=== PATIENT | male | born 1985 | race Caucasian/White ===

== ENCOUNTER 2016-10-21 10:07 | Emergency (ER) | payer OTHER ==
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
[2016-10-21] MEDS ORDERED: ACETAMINOPHEN 325 MG TABLET (FP) PO ONE (10:11)
[2016-10-21] MEDS ORDERED: METOCLOPRAMIDE HCL 10 MG TABLET (FP) PO ONE ×2 (10:12→10:16)
[2016-10-21 10:14] VITALS: TEMP 98; BMI 25.0
[2016-10-21] MEDS ORDERED: ACETAMINOPHEN 325 MG TABLET (FP) ONE (10:15)
[2016-10-21 13:04] VITALS: BP 130/77; PULSE 66
== END 2016-10-21 13:04 | disposition home or self-care (01) ==
LOC: JER 10:07
DX: F07.81 Postconcussional syndrome (principal); M25.561 Pain in right knee; M25.571 Pain in right ankle and joints of right foot; W17.89XA Other fall from one level to another, initial encounter; X00.8XXA Other exposure to uncontrolled fire in building or structure, initial encounter; Y93.89 Activity, other specified; Y92.89 Other specified places as the place of occurrence of the external cause; Y99.0 Civilian activity done for income or pay
CPT/HCPCS: 70450-TC; 72125-TC; 73560-TC-RT; 73610-TC-LT; 99283-25

== ENCOUNTER 2017-06-20 19:22 | Emergency (ER) | payer OTHER ==
[2017-06-20 19:25] VITALS: BP 134/84; PULSE 65; TEMP 97; BMI 24.3
[2017-06-20] MEDS ORDERED: IBUPROFEN 600 MG TABLET (FP) PO ONE (19:40)
[2017-06-20] MEDS ORDERED: IBUPROFEN 400 MG TABLET (FP) PO ONE (19:41)
--- NOTE | 2017-06-20 19:46 | PDOC ---
History of Present Illness - General Chief Complaint: Injury Stated Complaint: RIGHT LEG INJURY Time Seen by Provider: 06/20/17 19:34 History Source: Patient Exam Limitations: No Limitations - History of Present Illness Initial Comments: 06/20/17 19:41 31 yr [place] [employer] injured left heel walking down steps felt a pop and fell. Pt has pain to the posterior heel left side. this happened 1hr ago. no medical history or allergies. Occurred: reports: this evening Severity: Yes: moderate Past History - Past Medical History Allergies/Adverse Reactions: Allergies Allergy/AdvReac Type Severity Reaction Status Date / Time No Known Allergies Allergy Verified 06/20/17 19:25 Home Medications: Ambulatory Orders Ibuprofen 800 mg PO TID PRN #20 tablet 06/20/17 GI Disorders: Yes (CROHNS) - Immunization History Td Vaccination: Yes Immunization Up to Date: Yes - Suicide/Smoking/Psychosocial Hx Smoking Status: No Smoking History: Never smoked Have you smoked in the past 12 months: No Number of Cigarettes Smoked Daily: 0 Hx Alcohol Use: No Drug/Substance Use Hx: No Substance Use Type: None Review of Systems - Review of Systems Able to Perform ROS?: Yes Is the patient limited Tuvaluan proficient: No Musculoskeletal: Yes: Symptoms Reported *Physical Exam - Vital Signs Last Vital Signs Temp Pulse Resp BP Pulse Ox 97 F L 65 18 134/84 99 06/20/17 19:22 06/20/17 19:22 06/20/17 19:22 06/20/17 19:22 06/20/17 19:38 - Physical Exam General Appearance: Yes: Nourished, Appropriately Dressed HEENT: positive: EOMI, BILL Respiratory/Chest: positive: Lungs Clear, Normal Breath Sounds Cardiovascular: positive: Regular Rhythm, Regular Rate Musculoskeletal: positive: Normal Inspection Extremity: positive: Normal Capillary Refill, Normal Inspection, Tender ( achiles tendon, no laxity or boggyness , no bony tenderness , FROM of the heel/ ankle joint with some pain posteriroly ) Integumentary: positive: Normal Color, Dry, Warm Neurologic: positive: flower maker II-XII NML intact, Fully Oriented, Alert Medical Decision Making - Medical Decision Making 06/20/17 19:43 cc: left heel injury , felt a pop walking down steps pain to the posterior heel at the achiles tendon neg Seo;s test, pain to palpation to the achiles tendon FROM of the ankle will splint, crutches and strict follow up with ortho on Friday or friday ice, rest elevation, NSAIDS pt understands the follow up plan of care. all questions asked and answered 06/21/17 19:33 *DC/Admit/Observation/Transfer Diagnosis at time of Disposition: Achilles tendon injury Qualifiers: Encounter type: initial encounter Laterality: left Qualified Code(s): S86.002A - Unspecified injury of left Achilles tendon, initial encounter - Discharge Dispostion Disposition: HOME Condition at time of disposition: Good - Prescriptions Prescriptions: Ibuprofen 800 mg PO TID PRN #20 tablet PRN Reason: Pain - Referrals Referrals: Manuel Rocha I [Primary Care Provider] - Tayo Juárez MD [Staff Physician] - - Patient Instructions Additional Instructions: elevate on 2-3 pillows and apply ice every 2hrs for 20 minutes for the next 48hrs while awake take motrin 800mg every 8hrs for pain use the katherine wrap at all times and the crutches to weight bear do not put weight on the heel if it hurts follow with the orthopedist next week for follow up no work until cleared by ortho pedist - Post Discharge Activity Forms/Work/School Notes: Back to Work
== END 2017-06-20 19:54 | disposition home or self-care (01) ==
LOC: JERFT 19:22
DX: S86.002A Unspecified injury of left Achilles tendon, initial encounter (principal); W10.9XXA Fall (on) (from) unspecified stairs and steps, initial encounter; Y93.89 Activity, other specified; Y92.9 Unspecified place or not applicable; Y99.0 Civilian activity done for income or pay; K50.90 Crohn's disease, unspecified, without complications
CPT/HCPCS: 99281-25

== ENCOUNTER 2018-01-23 22:41 | Emergency (ER) | payer OTHER ==
[2018-01-23 22:44] VITALS: BP 150/74; PULSE 73; TEMP 98.6; BMI 25.6
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
== END 2018-01-24 00:10 | disposition home or self-care (01) ==
LOC: JER 22:41
DX: S46.812A Strain of other muscles, fascia and tendons at shoulder and upper arm level, left arm, initial encounter (principal); X50.0XXA Overexertion from strenuous movement or load, initial encounter; Y93.89 Activity, other specified; Y92.89 Other specified places as the place of occurrence of the external cause; Y99.0 Civilian activity done for income or pay; X08.8XXA Exposure to other specified smoke, fire and flames, initial encounter
CPT/HCPCS: 73030-TC-LT-FY; 99283-25

== ENCOUNTER 2020-07-09 10:26 | Emergency (ER) | payer OTHER ==
[2020-07-09 10:29] VITALS: BP 108/71; PULSE 63; TEMP 99.4; BMI 25.0
[2020-07-09] MEDS ORDERED: IBUPROFEN 400 MG TABLET (FP) PO ONE ×2 (11:03→11:04)
--- NOTE | 2020-07-09 11:07 | PDOC ---
History of Present Illness - General Chief Complaint: Injury Stated Complaint: LT WRIST INJURY Time Seen by Provider: 07/09/20 10:38 History Source: Patient Exam Limitations: Clinical Condition - History of Present Illness Initial Comments: 07/09/20 11:07 Patient with no significant past medical history present with complaint of left wrist pain status post slip and fall from a fire truck on outstretched hand. Patient report he was trying to open the door and his leg got stuck on the step on the truck and he fell on outstretched hand. Denies hitting head or loss of consciousness. Denies pain to anywhere else. Denies dizziness, blurry vision or change in vision, nausea or vomiting. Patient not take anything for symptoms. Reported history of left ring finger surgery from previous injury Occurred: reports: just prior to arrival Past History - Medical History Allergies/Adverse Reactions: Allergies Allergy/AdvReac Type Severity Reaction Status Date / Time No Known Allergies Allergy Verified 07/09/20 10:29 Home Medications: Ambulatory Orders Ibuprofen 800 mg PO TID PRN #20 tablet 07/09/20 COPD: No GI Disorders: No Other medical history: 3 screws to left ring finger - Immunization History Td Vaccination: Yes Immunization Up to Date: Yes - Psycho-Social/Smoking History Smoking Status: No Smoking History: Never smoked Have you smoked in the past 12 months: No Number of Cigarettes Smoked Daily: 0 Review of Systems - Review of Systems Able to Perform ROS?: Yes Is the patient limited Guinean proficient: No Constitutional: No: Chills, Fever, Malaise HEENTM: No: Symptoms Reported, See HPI, Eye Pain, Blurred Vision, Tearing, Recent change in vision, Double Vision, Cataracts, Ear Pain, Ocular Prothesis, Ear Discharge, Nose Pain, Nose Congestion, Tinnitus, Nose Bleeding, Hearing Loss, Throat Pain, Throat Swelling, Mouth Pain, Dental Problems, Difficulty Swallowing, Mouth Swelling, Other Respiratory: No: Symptoms reported, See HPI, Cough, Orthopnea, Shortness of Breath, SOB with Exertion, SOB at Rest, Stridor, Wheezing, Productive cough, Hemoptysis, Other Cardiac (ROS): No: Symptoms Reported, See HPI, Chest Pain, Edema, Irregular Heart Rate, Lightheadedness, Palpitations, Syncope, Chest Tightness, Other ABD/GI: No: Symptoms Reported, Nausea, Vomiting Musculoskeletal: Yes: Symptoms Reported, See HPI, Joint Pain (left wrist pain), Joint Swelling (left wrist), Muscle Pain (left hand pain) Integumentary: No: Symptoms Reported Neurological: No: Tingling, Weakness All Other Systems: Reviewed and Negative *Physical Exam - Vital Signs Last Vital Signs Temp Pulse Resp BP Pulse Ox 99.4 F 63 18 108/71 98 07/09/20 10:27 07/09/20 10:27 07/09/20 10:27 07/09/20 10:27 07/09/20 10:27 - Physical Exam 07/09/20 11:10 GENERAL: Well developed, well nourished. Awake and alert in mild acute distress. PULMONARY: No evidence of respiratory distress. MUSCULOSKELETAL : moderate tenderness over ulnar aspect of left wrist and underside of left hand. No visible deformity. Mild localized swelling over ulnar aspect of left wrist. Free range of motion of left wrist and hand. Normal strength to left hands and fingers. No tenderness to left forearm or elbow SKIN: Warm and dry. Normal capillary refill. Mild localized swelling over ulnar aspect of left wrist. No bruising or ecchymosis or open wound to left wrist or hand. NEUROLOGICAL: Alert, awake, appropriate. No motor deficits in the lower extremities. Gait is normal without ataxia. PSYCHIATRIC: Cooperative. Good eye contact. Appropriate mood and affect. General Appearance: Yes: Nourished, Appropriately Dressed. No: Mild Distress Procedures - Splinting Splint Location: Left: Wrist Pre-Proc Neuro Vasc Exam: normal Pre-Made Type: aircast Splint Type: Yes: Wrist Post-Proc Neuro Vasc Exam: normal Jamshid Bandage: 3" Sling: No Complications: No Post splint xray: No Good repositioning: Yes ED Treatment Course - RADIOLOGY Radiology Studies Ordered: Category Date Time Status WRIST W/HAND-LEFT* [RAD] Stat Radiology 07/09/20 10:42 Taken Medical Decision Making - Medical Decision Making 07/09/20 11:08 Patient with no significant past medical history present with complaint of left wrist pain status post slip and fall from a fire truck on outstretched hand. Patient report he was trying to open the door and his leg got stuck on the step on the truck and he fell on outstretched hand. Denies hitting head or loss of consciousness. Denies pain to anywhere else. Denies dizziness, blurry vision or change in vision, nausea or vomiting. Patient not take anything for symptoms. Reported history of left ring finger surgery from previous injury Exam significant for moderate tenderness over ulnar aspect of left wrist and underside of left hand. No visible deformity. Mild localized swelling over ulnar aspect of left wrist. Free range of motion of left wrist and hand. Normal strength to left hands and fingers. X-ray of left hand shows screws in proximal phalange of left ring finger from previous surgery otherwise with no acute findings. No acute fracture or dislocation visible on x-ray. Patient symptoms likely wrist sprain. Left wrist and hand placed in prefabricated wrist splint after wrist wrapped with Jamshid bandage to support hand and left wrist. Motrin 800 mg p.o. given for pain. Patient stable for discharge on Motrin as needed for pain with orthopedics follow-up Discharge - Discharge Information Problems reviewed: Yes Clinical Impression/Diagnosis: Left wrist sprain Qualifiers: Encounter type: initial encounter Qualified Code(s): S63.502A - Unspecified sp rain of left wrist, initial encounter Condition: Stable Disposition: HOME - Admission No - Additional Discharge Information Prescriptions: Ibuprofen 800 mg PO TID PRN #20 tablet PRN Reason: Pain - Follow up/Referral Referrals: Ivan Pacheco DO [Staff Physician] - - Patient Discharge Instructions Patient Printed Discharge Instructions: DI for Wrist Sprain Additional Instructions: X-ray of your left wrist and hand shows no acute fracture or dislocation. Your pain is likely from wrist sprain. Use provided wrist splint for at least a week to help support the wrist. Take prescribed Motrin as needed for pain. Do cold compress today switch to hot compress tomorrow as needed for swelling. No heavy lifting for the next 3 days. Follow-up referred orthopedics if no improvement in 4 days - Post Discharge Activity Work/Back to School Note: Back to Work
== END 2020-07-09 11:22 | disposition home or self-care (01) ==
LOC: JERFT 10:26
DX: S63.502A Unspecified sprain of left wrist, initial encounter (principal)
CPT/HCPCS: 73110-TC-LT-FY; 73130-TC-LT-FY; 99283-25

== ENCOUNTER 2021-05-15 18:11 | Emergency (ER) | payer OTHER ==
[2021-05-15 18:22] VITALS: BP 112/70; PULSE 61; TEMP 97.8; BMI 25.0
== END 2021-05-15 23:18 | disposition home or self-care (01) ==
LOC: JERFT 18:11
DX: S69.92XA Unspecified injury of left wrist, hand and finger(s), initial encounter (principal); Y99.8 Other external cause status
CPT/HCPCS: 73140-TC-LT-FY; 99283-25

== ENCOUNTER 2022-04-12 14:43 | Emergency (ER) | payer OTHER ==
[2022-04-12 14:59] VITALS: TEMP 98.2; BMI 23.1
[2022-04-12] MEDS ORDERED: ACETAMINOPHEN 1000 MG/100 ML BAG IVPB ONE (15:32)
[2022-04-12] MEDS ORDERED: SODIUM CHLORIDE 0.9% 500 ML INFUS.BAG IV ONE ×2 (15:32→17:03)
[2022-04-12] MEDS ORDERED: METOCLOPRAMIDE HCL INJECTION 10 MG/2 ML VIAL IVPB ONE (15:32)
[2022-04-12] MEDS ORDERED: MECLIZINE HCL 25 MG TABLET (FP) PO ONE (15:32)
[2022-04-12] MEDS ORDERED: ACETAMINOPHEN INJECTION 100 ML IVPB ONE (15:41)
[2022-04-12] MEDS ORDERED: METOCLOPRAMIDE HCL INJECTION 10 MG/2 ML VIAL ONE (15:43)
[2022-04-12] MEDS ORDERED: MECLIZINE HCL 25 MG TABLET (FP) ONE (15:43)
[2022-04-12 16:35] LABS: BASO % 0.2 % (0-2.0); EOS % 0.5 % (0-4.5); HEMATOCRIT 44.1 % (35.4-49); LYMPH % 11.1 % (8-40); MCH 30.6 pg (25.7-33.7); MEAN PLT VOLUME 8.3 fl (7.5-11.1); MONO % 6.5 % (3.8-10.2); NEUT % 81.7 % (42.8-82.8); PLATELET COUNT 198 10^3/uL (134-434); RDW 13.7 % (11.9-15.9); WHITE BLOOD COUNT 6.6 K/mm3 (4.0-10.0)
[2022-04-12 16:50] LABS: CALCIUM 8.9 mg/dL (8.5-10.1)
[2022-04-12 16:51] LABS: ALBUMIN 4.2 g/dl (3.4-5.0); BLOOD UREA NITROGEN 18.5 mg/dL (7-18); MAGNESIUM 2.2 mg/dL (1.8-2.4)
[2022-04-12 16:54] LABS: CREATININE 1.6 mg/dL (0.55-1.3)
[2022-04-12 16:56] LABS: BILIRUBIN,TOTAL 0.6 mg/dL (0.2-1); TOT PROT 7.3 g/dl (6.4-8.2)
[2022-04-12 18:38] LABS: PH,URINE 6.5 (5.0-8.0); URINE APPEARANCE CLEAR; URINE BILIRUBIN NEGATIVE (NEGATIVE); URINE COLOR YELLOW; URINE GLUCOSE (UA) NEGATIVE (NEGATIVE); URINE KETONE TRACE (NEGATIVE); URINE LEUK ESTERASE NEGATIVE (NEGATIVE); URINE NITRITE NEGATIVE (NEGATIVE); URINE PROTEIN TRACE (NEGATIVE)
[2022-04-12 21:28] VITALS: BP 108/72; PULSE 60; RESP 16
== END 2022-04-12 21:45 | disposition home or self-care (01) ==
LOC: JER 14:43
PROC: 3E0333Z Introduction of Anti-inflammatory into Peripheral Vein, Percutaneous Approach (ICD-10-PCS; principal; 2022-04-12)
PROC: 3E033GC Introduction of Other Therapeutic Substance into Peripheral Vein, Percutaneous Approach (ICD-10-PCS; 2022-04-12)
DX: R51.9 Headache, unspecified (principal); R07.9 Chest pain, unspecified
CPT/HCPCS: 36415; 71046-TC-FY; 80053; 81003; 82375; 82550; 82553; 83735; 84484; 85025; 87086; 93005; 93010; 99285-25

== ENCOUNTER 2022-11-23 11:33 | Emergency (ER) | payer OTHER ==
[2022-11-23 11:54] VITALS: BP 130/90; PULSE 70; RESP 18; TEMP 98; BMI 25.0
[2022-11-23] MEDS ORDERED: KETOROLAC TROMETHAMINE 30 MG/1 ML VIAL IM ONE (11:56)
== END 2022-11-23 14:37 | disposition home or self-care (01) ==
LOC: JERFT 11:33
PROC: 3E0233Z Introduction of Anti-inflammatory into Muscle, Percutaneous Approach (ICD-10-PCS; principal; 2022-11-23)
DX: R07.89 Other chest pain (principal); M25.512 Pain in left shoulder; W10.8XXA Fall (on) (from) other stairs and steps, initial encounter
CPT/HCPCS: 70450-TC; 71046-TC-FY; 71250-TC; 72125-TC; 99284-25

== ENCOUNTER 2023-01-23 01:22 | Emergency (ER) | payer OTHER ==
[2023-01-23 01:25] VITALS: BP 111/63; PULSE 64; RESP 17; TEMP 98.1; BMI 24.6
[2023-01-23] MEDS ORDERED: KETOROLAC TROMETHAMINE 30 MG/1 ML VIAL IM ONE (01:40)
[2023-01-23] MEDS ORDERED: ACETAMINOPHEN 325 MG TABLET (FP) PO ONE (01:40)
[2023-01-23] MEDS ORDERED: LIDOCAINE 5% TOPICAL PATCH TP ONE (01:40)
[2023-01-23] MEDS ORDERED: ACETAMINOPHEN 325 MG TABLET (FP) ONE (01:59)
[2023-01-23] MEDS ORDERED: LIDOCAINE 5% TOPICAL PATCH ONE (01:59)
[2023-01-23] MEDS ORDERED: KETOROLAC TROMETHAMINE 30 MG/1 ML VIAL ONE (01:59)
[2023-01-23] MEDS ORDERED: LIDOCAINE PATCH REMOVAL MC ONE (14:00)
== END 2023-01-23 02:13 | disposition home or self-care (01) ==
LOC: JER 01:22
PROC: 3E0233Z Introduction of Anti-inflammatory into Muscle, Percutaneous Approach (ICD-10-PCS; principal; 2023-01-23)
DX: M54.50 Low back pain, unspecified (principal)
CPT/HCPCS: 99284-25

== ENCOUNTER 2023-05-09 09:01 | Emergency (ER) | payer OTHER ==
[2023-05-09 09:16] VITALS: BP 113/73; PULSE 57; RESP 18; TEMP 98.6; BMI 25.0
[2023-05-09] MEDS ORDERED: TETRACAINE 0.5% HCL 0.6ML DROPPER.BOTTLE OU ONE (09:27)
[2023-05-09] MEDS ORDERED: FLUORESCEIN NA 1 EA STRIP OU ONE (09:28)
[2023-05-09] MEDS ORDERED: TETRACAINE 0.5% OPHTH SOLN 2 ML BOTTLE ONE (09:41)
[2023-05-09] MEDS ORDERED: FLUORESCEIN NA 1 EA STRIP ONE (09:41)
== END 2023-05-09 10:28 | disposition home or self-care (01) ==
LOC: JERFT 09:01 → JER 09:01 → JERFT 10:28
DX: S05.02XA Injury of conjunctiva and corneal abrasion without foreign body, left eye, initial encounter (principal); X58.XXXA Exposure to other specified factors, initial encounter; Y99.0 Civilian activity done for income or pay
CPT/HCPCS: 99283-25